=== PATIENT | female | born 1980 | race Caucasian/White ===

== ENCOUNTER 2018-01-03 02:09 | Emergency (ER) | payer MEDICAID ==
[~2018-01-03] VITALS: Ht 160 cm; Wt 91.7 kg
[2018-01-03 07:43] VITALS: BP 129/68
== END 2018-01-03 07:47 | disposition home or self-care (01) ==
LOC: ED 02:09
DX: J45.901 Unspecified asthma with (acute) exacerbation (principal); R51 Headache
CPT/HCPCS: J2765; J7512; J7620